=== PATIENT | female | born 1995 | race Hispanic/Latino ===

== ENCOUNTER 2019-01-18 11:35 | Emergency (ER) | payer OTHER ==
[2019-01-18] MEDS ORDERED: NAPROXEN 500 MG TABLET ONE (11:51)
== END 2019-01-18 11:57 | disposition home or self-care (01) ==
LOC: EDH 11:35
DX: S29.011A Strain of muscle and tendon of front wall of thorax, initial encounter (principal); S21.209A Unspecified open wound of unspecified back wall of thorax without penetration into thoracic cavity, initial encounter; V49.49XA Driver injured in collision with other motor vehicles in traffic accident, initial encounter; Y93.89 Activity, other specified; Y92.89 Other specified places as the place of occurrence of the external cause; Y99.8 Other external cause status

== ENCOUNTER 2019-02-26 10:37 | Emergency (ER) | payer OTHER ==
[2019-02-26 11:21] LABS: BASOPHILS % (AUTO) 0.5 % (0.0-5.0); EOSINOPHILS % (AUTO) 0.7 % (0.0-8.0); HEMATOCRIT 41.5 % (36-48); LYMPHOCYTES % (AUTO) 23.8 % (21.0-51.0); MEAN CORPUSCULAR HEMOGLOBIN 29.7 pg (27.0-33.0); MEAN CORPUSCULAR HGB CONC 33.7 g/dL (32.0-36.0); MEAN CORPUSCULAR VOLUME 88.2 fL (79-99); MONOCYTES % (AUTO) 8.8 % (3.0-13.0); NEUTROPHILS % (AUTO) 66.2 % (40.0-77.0); PLATELET COUNT (AUTO) 305 K/uL (130-400); RED CELL DISTRIBUTION WIDTH 13.1 % (11.0-15.5); WHITE BLOOD COUNT (AUTO) 6.8 K/uL (4.8-10.8)
[2019-02-26 11:32] LABS: APPEARANCE,URINE CLOUDY (CLEAR); BILIRUBIN,URINE NEGATIVE (NEGATIVE); COLOR,URINE YELLOW (YELLOW); GLUCOSE, URINE (UA) NEGATIVE (NEGATIVE); KETONES,URINE NEGATIVE (NEGATIVE); LEUKOCYTE ESTERASE ,URINE TRACE (NEGATIVE); NITRATE,URINE NEGATIVE (NEGATIVE); OCCULT BLOOD,URINE LARGE (NEGATIVE); PROTEIN,URINE TRACE mg/dL (NEGATIVE); UROBILINOGEN,URINE 0.2 mg/dL (0.2-1.0)
[2019-02-26 11:34] LABS: CREATININE 0.7 mg/dL (0.5-1.5); POTASSIUM 3.7 mmol/L (3.5-5.1)
[2019-02-26 11:57] LABS: HCG,QUAL RESULT NEGATIVE (NEGATIVE)
[2019-02-26] MEDS ORDERED: KETOROLAC TROMETHAMINE 60 MG/2 ML VIAL ONE (12:02)
[2019-02-26 12:18] LABS: RBC,URINE 26-50 /HPF (0-1)
[2019-02-26 12:19] LABS: BACTERIA,URINE Few /HPF (None Seen); WBC,URINE 0-1 /HPF (0-1)
== END 2019-02-26 12:43 | disposition home or self-care (01) ==
LOC: EDH 10:37
DX: N93.9 Abnormal uterine and vaginal bleeding, unspecified (principal)
CPT/HCPCS: 36415; 80048; 81001; 81025; 85025; 96372; 99284; J1885

== ENCOUNTER 2024-04-30 15:19 | Emergency (ER) | payer OTHER ==
[~2024-04-30] VITALS: Ht 170.2 cm; Wt 140.6 kg
[2024-04-30 16:15] LABS: APPEARANCE,URINE CLOUDY (CLEAR); BILIRUBIN,URINE NEGATIVE (NEGATIVE); COLOR,URINE LIGHT-YELLOW (YELLOW); GLUCOSE, URINE (UA) NEGATIVE (NEGATIVE); KETONES,URINE NEGATIVE (NEGATIVE); LEUKOCYTE ESTERASE ,URINE 250 Leu/uL (NEGATIVE); NITRATE,URINE NEGATIVE (NEGATIVE); OCCULT BLOOD,URINE SMALL (NEGATIVE); PH,URINE 6.5 (5.0-8.0); PROTEIN,URINE NEGATIVE (NEGATIVE); UROBILINOGEN,URINE 0.2 mg/dL (0.2-1.0)
[2024-04-30 16:18] LABS: BACTERIA,URINE FEW /HPF (None Seen); MUCUS,URINE RARE LPF (None Seen); SQUAMOUS EPITHELIAL CELL,UR FEW /HPF (0-2)
[2024-04-30 16:22] LABS: HCG,QUALITATIVE URINE NEGATIVE (NEGATIVE)
[2024-04-30] MEDS ORDERED: KETO10TA2 PO (16:34)
[2024-04-30] MEDS ORDERED: CEPH500B PO (16:34)
[2024-04-30] MEDS: BACLOFEN 10 MG TABLET PO SCH (16:35)
[2024-04-30] MEDS: ketOROlac 30MG VIAL (30MG/ML) IM ONE (16:36)
[2024-04-30 16:50] VITALS: BP 150/87; PULSE 74; RESP 18; TEMP 98.1; O2SAT 98
== END 2024-04-30 16:50 | disposition home or self-care (01) ==
LOC: EDH 15:19
DX: M54.31 Sciatica, right side (principal); N39.0 Urinary tract infection, site not specified
CPT/HCPCS: 99283; 87086; 81001; 81025; 96372; J1885